=== PATIENT | female | born 2000 | race Caucasian/White ===

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

== ENCOUNTER 2019-01-21 07:56 | Emergency (ER) | payer OTHER ==
[2019-01-21] MEDS: IBUPROFEN 600 MG TAB PO (08:23)
[2019-01-21 09:03] LABS: URINE PH (Dip) POC 5.5 (5.0-8.5)
[2019-01-21 09:03] LABS: URINE BLOOD (Dip) POC Negative (NEGATIVE); URINE GLUCOSE (Dip) POC Negative (NEGATIVE); URINE KETONES (Dip) POC Negative (NEGATIVE); URINE LEUKOCYTE EST (Dip) POC Trace (NEGATIVE); URINE NITRITE (Dip) POC Negative (NEGATIVE); URINE TOTAL PROTEIN POC Negative (NEGATIVE)
== END 2019-01-21 09:43 | disposition home or self-care (01) ==
LOC: FTE 09:43
DX: R10.9 Unspecified abdominal pain (principal)
CPT/HCPCS: 81003; 81025; 99282

== ENCOUNTER 2019-01-24 22:24 | Emergency (ER) | payer SELFPAY, OTHER | END 2019-01-24 22:44 | disposition left against medical advice (07) | LOC: E/R 22:24 | DX: Z53.21 Procedure and treatment not carried out due to patient leaving prior to being seen by health care provider (principal) ==